=== PATIENT | female | born 1985 | race Caucasian/White ===

== ENCOUNTER 2018-01-31 13:29 | Emergency (ER) | payer OTHER ==
[~2018-01-31] VITALS: Ht 152.4 cm; Wt 80.7 kg
[~2018-01-31 13:29] MED LIST: ALBUTEROL17 GM IH; HYDROCODON-ACE1 EAC7 PO; HYDROCODON-ACE1 EACH; INVEGA9 MG; Keflex PO; MACROBID100 MG PO; METHADONE HCL40 MG PO; METHADOSE10 MG PO; MOTRIN800 MG PO; NAPROSYN500 MG PO; NOHOMEMEDS; PAXIL30 MG; PRAZOSIN HCL1 MG; PREDNISONE10 MG PO; PROAIR HFA8.5 GM IH; PROVENTIL,2.5 MG/0.5 IH; PYRIDIUM100 MG PO; SEROQUEL200 MG PO; TRAMADOL HCL50 MG; TYLENOL WITH C1 EACH PO; VYVANSE40 MG; ZOFRAN ODT8 MG PO
[2018-01-31] MEDS ORDERED: MOTRIN800 MG PO (13:50)
[2018-01-31] MEDS ORDERED: TYLENOL WITH C1 EACH PO (13:50)
[2018-01-31] MEDS ORDERED: PEN-VEE K,VEET500 MG PO (13:50)
[2018-01-31 14:11] VITALS: BP 120/80
== END 2018-01-31 14:12 | disposition home or self-care (01) ==
LOC: EME 13:29
DX: K02.9 Dental caries, unspecified (principal); K03.81 Cracked tooth; F17.200 Nicotine dependence, unspecified, uncomplicated
CPT/HCPCS: 99281; 99284